=== PATIENT | female | born 1985 | race Native Hawaiian/Other Pacific Islander ===

== ENCOUNTER 2016-12-13 23:43 | Emergency (ER) | payer OTHER ==
[2016-12-13 23:55] VITALS: BP 127/88; PULSE 77; TEMP 98.2; O2SAT 97
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
[2016-12-14 01:24] VITALS: RESP 20
== END 2016-12-14 01:25 | disposition home or self-care (01) ==
LOC: C.ER 23:43
DX: S09.90XA Unspecified injury of head, initial encounter (principal); V49.49XA Driver injured in collision with other motor vehicles in traffic accident, initial encounter; Y92.410 Unspecified street and highway as the place of occurrence of the external cause